=== PATIENT | male | born 1975 | race Caucasian/White ===

== ENCOUNTER 2019-05-29 13:05 | Emergency (ER) | payer SELFPAY ==
[~2019-05-29] VITALS: Ht 195.6 cm; Wt 81.6 kg
[2019-05-29 13:26] VITALS: BP 116/63
[2019-05-29] MEDS ORDERED: NEOMY/BACITR/POLYMYXIN OINT PACKET. TP ONE (14:00)
[2019-05-29] MEDS ORDERED: LIDOCAINE 1% PF 2 ML VIAL. INJ ONE (14:00)
[2019-05-29] MEDS ORDERED: DIPHTH,PERTUSS(ACELL),TET TOX 0.5 ML DISP.SYRIN. VAX IM ONE (14:00)
[2019-05-29] MEDS ORDERED: CEPH500C PO (15:43)
--- NOTE | 2019-05-29 15:43 | PHYS DOC ---
Past Medical History Past Medical History: No Pertinent History Past Surgical History: No Surgical History Alcohol Use: Occasionally Drug Use: None Adult General Chief Complaint Chief Complaint: LACERATION/AVULSION [facility] HPI Patient is a 43 year old male who presents to the ER with complaints of a V- shaped laceration to the volar surface of his left hand proximal to the 2nd and 3rd fingers after being cut by a broken window at approximately 0130 this [place] Pt states he thought the laceration would be fine without sutures but reports that the wound continued to bleed today so he came in for sutures. Pt is unsure of when his last Tdap was. He denies any numbness, tingling, weakness, or decreased ROM in the affected hand. He currently reports his pain as a 6/10 on the pain scale, the pain increases with palpation and movement. All other ROS is negative unless otherwise noted in HPI. Review of Systems Review of Systems See Above Current Medications Current Medications Current Medications Medications (Trade) Dose Ordered Sig/Jeovany Start Time Stop Time Status Last Admin Dose Admin Diphtheria/ Tetanus/Acell Pertussis (Boostrix) 0.5 ml ONCE ONCE 05/29/19 14:00 05/29/19 14:01 DC 05/29/19 14:06 0.5 ML Lidocaine HCl (Xylocaine-Mpf 1% 2ml Vial) 4 ml 1X ONCE 05/29/19 14:00 05/29/19 14:01 DC 05/29/19 14:04 4 ML Neomycin/ Polymyxin/ Bacitracin (Triple Antibiotic Ointment) 1 pkt 1X ONCE 05/29/19 14:00 05/29/19 14:01 DC 05/29/19 14:04 1 PKT Allergies Allergies Allergies Coded Allergies Type Severity Reaction Last Updated Verified No Known Drug Allergies 05/29/19 No Physical Exam Physical Exam Constitutional: Well developed, well nourished, no acute distress, non-toxic appearance. [] HENT: Normocephalic, atraumatic, bilateral external ears normal, nose normal. [] Eyes: PERRLA, EOMI, conjunctiva normal, no discharge. [] Neck: Normal range of motion, no stridor. [] Cardiovascular:Heart rate regular rhythm Lungs & Thorax: Respirations even and unlabored, no retractions. Skin: Warm, dry, no erythema, no rash; 6 cm V-shaped laceration noted to volar surface of left hand proximal to the 2nd and 3rd digits with bleeding controlled by bandage in place. [] Extremities: L hand: no bony tenderness, no cyanosis, no clubbing, ROM intact, no edema. [] Neurologic: Alert and oriented X 3, no focal deficits noted. [] Psychologic: Affect normal, judgement normal, mood normal. [] Current Patient Data Vital Signs Vital Signs Date Time Temp Pulse Resp B/P (MAP) Pulse Ox O2 Delivery O2 Flow Rate FiO2 05/29/19 13:26 98.2 91 16 116/63 (80) 96 Room Air 98.2 EKG EKG [] Radiology/Procedures Radiology/Procedures Laceration Repair by me: Anesthesia: 1% lidocaine locally Location: left hand Tendon/Joint/Nerves: No injury Foreign body: None detected after copious irrigation and exploration Technique: 14 Simple Interrupted Sutures with 4-0 Ethilon Complexity: No subcutaneous sutures/mucosal repair/edge excision Post Closure Length: 6 cm Patient's bleeding was easily controlled in the department and there is no indication of anemia. No evidence of compartment syndrome, neurologic injury, vascular injury, open joint, tendon laceration, or foreign body. Patient is appropriate for outpatient follow up. Scar minimization instructions given.[] Course & Med Decision Making Course & Med Decision Making Pertinent Labs and Imaging studies reviewed. (See chart for details) [] Dragon Disclaimer Dragon Disclaimer This electronic medical record was generated, in whole or in part, using a voice recognition dictation system. Departure Departure Impression: Primary Impression: Laceration of left hand with delay in treatment Additional Impression: Need for Tdap vaccination Disposition: 01 HOME, SELF-CARE Condition: STABLE Referrals: NO PCP (PCP) Patient Instructions: Laceration Care, Adult, [id number], VIS, Tetanus, Diphtheria (Td); Tetanus, Diphtheria, Pertussis (Tdap) - CDC Additional Instructions: Keep the area clean and dry. You may take Tylenol or ibuprofen as needed for pain. Keep the dressing that was placed today on for 24 hours then change the dressing twice a day and apply antibiotic ointment to the area. Follow-up with your primary care doctor, or return to the emergency room in 10-14 days to have the sutures removed, sooner if you develop signs of infection including: redness, warmth, drainage, or a fever. Scripts Cephalexin (CEPHALEXIN) 500 Mg Capsule 1 CAP PO TID for 7 Days, #21 CAP 0 Refills Prov: SAMMY SU APRN 05/29/19 Problem Qualifiers Primary Impression: Laceration of left hand with delay in treatment Encounter type: initial encounter Qualified Codes: S61.412A - Laceration without foreign body of left hand, initial encounter SAMMY SU APRN May 29, 2019 15:43
== END 2019-05-29 16:01 | disposition home or self-care (01) ==
LOC: ER 13:05
DX: S61.412A Laceration without foreign body of left hand, initial encounter (principal); Y28.8XXA Contact with other sharp object, undetermined intent, initial encounter; Y93.89 Activity, other specified; Y92.89 Other specified places as the place of occurrence of the external cause; Y99.8 Other external cause status
CPT/HCPCS: 12002; 90471; 90715; 99283